=== PATIENT | male | born 1980 | race Caucasian/White ===

== ENCOUNTER 2017-01-30 16:06 | Day surgery (SDC) | payer BC ==
[~2017-01-30 16:06] MED LIST: GLUCAGON,HUMAN RECOMB 1 MG INJ ONE; SUCCINYLCHOLINE CHLORIDE INJ 200 MG/10 ML VIAL ONE
[2017-01-30] MEDS ORDERED: ALBUTEROL SULFATE 0.083% NEB 2.5 MG/3 ML AMPUL NEB ONE (17:05)
[2017-01-30] MEDS ORDERED: PROPOFOL INJ 200 MG/20 ML VIAL IV ONE (18:17)
[2017-01-30] MEDS ORDERED: FENTANYL CITRATE INJ/PF 100 MCG/2 ML AMPUL ONE ×2 (18:17)
[2017-01-30] MEDS ORDERED: MIDAZOLAM 2 MG/2 ML INJ ONE (18:17)
[2017-01-30] MEDS ORDERED: HYDROMORPHONE HCL INJ/PF 2 MG/ML AMPULE ONE (19:04)
[2017-01-30] MEDS ORDERED: DIPHENHYDRAMINE HCL 50 MG/ML VIAL IV PRN (19:13)
[2017-01-30] MEDS ORDERED: OXYCODONE-ACETAMINOPHEN 5-325 MG TABLET PO PRN ×2 (19:13)
[2017-01-30] MEDS ORDERED: MORPHINE SULFATE 10 MG/ML INJ IV PRN (19:13)
[2017-01-30] MEDS ORDERED: MEPERIDINE HCL/PF INJ 25 MG/1 ML DISP.SYRIN IV PRN (19:13)
[2017-01-30] MEDS ORDERED: FENTANYL CITRATE INJ/PF 100 MCG/2 ML AMPUL IV PRN ×3 (19:13)
[2017-01-30] MEDS ORDERED: PROMETHAZINE HCL INJ 25 MG/1 ML VIAL IV PRN ×2 (19:13)
--- NOTE | 2017-01-30 19:23 | Operative Report ---
Operative Report DATE OF SURGERY: 01/30/17 Operative Report: Pre-op diagnosis: Abnormal MRCP Post-op diagnosis: Multiple Common bile duct stones with dilated CBD Surgery: ERCP with sphincterotomy and balloon stone extraction Medications: As per anesthesia Tissue removed: Procedure: After informed consent obtained from patient, the throat was sprayed with Hurricane and conscious sedation was achieved. The ERCP endoscope was then inserted into the esophagus blindly and advanced into the stomach. The duodenum was entered and the ampulla was identified. Using the triple-lumen sphincterotomy catheter the common bile duct was freely cannulated. A cholangiogram was obtained which showed possible filling defect in the distal common bile duct. The common bile duct appear dilated. A good sized sphincterotomy was then performed using the endocut mode. The catheter was removed over the guidewire before a 9-12 mm balloon catheter was inserted. The balloon was inflated to 12 mm in the proximal common bile duct and pulled down the duct. Two large stones were extracted. The duct was swept two more times. A balloon occlusion cholangiogram was normal. The pancreatic duct was intentionally not cannulated. Patient tolerated procedure well. Findings Common bile duct:Two 1cm stones and sludge Intrahepatic ducts: Normal Pancreatic duct: Not cannulated Plan: Colecystectomy on 01/31/17 OPERATION: .
--- NOTE | 2017-01-30 19:25 | PDOC DISCHARGE SUMMARY ---
Discharge Summary (SDC) - Discharge Final Diagnosis: CBD stones Date of Surgery: 01/30/17 Condition: Stable Treatment or Instructions: none Discharge Diet: Clear Liquids Discharge Activity: Activity As Tolerated Report the Following to Your Physician Immediately: Shortness of Breath, Nausea , Vomiting, Yellow Skin, Fever over 101 Degrees
[2017-01-30 21:51] VITALS: BP 126/76
--- NOTE | 2017-01-31 09:00 | RADIOLOGY REPORT (SQ) ---
EXAM DESCRIPTION: ENDO CATH BILI/PANCREATIC COMPLETED DATE/TIME: 01/30/2017 7:35 pm REASON FOR STUDY: ERCP W/STONE REMOVAL K80.20 CALCULUS OF GALLBLADDER W/O CHOLECYSTITIS W/O OBSTRUC R94.5 ABNORMAL RESULTS OF LIVER FUNCTION STUDIES R10.13 EPIGASTRIC PAIN COMPARISON: None. FLUOROSCOPY TIME: 2.2 minutes 5 images saved to PACS. TECHNIQUE: Intra-operative images acquired during surgical procedure to evaluate progress. NUMBER OF IMAGES: 5 LIMITATIONS: None. FINDINGS: Endoscope tip overlying 2nd portion of duodenum. There is opacification of the bile ducts . No evidence of fixed filling defect or extravasation. IMPRESSION: IMAGE(S) OBTAINED DURING PROCEDURE. COMMENT: Quality ID [id number]: Final reports for procedures using fluoroscopy that document radiation exp osure indices, or exposure time and number of fluorographic images (if radiation exposure indices are not available) Please consult full operative report of the attending physician for description of the procedure. TECHNICAL DOCUMENTATION: JOB ID: [id number] [employer]- All Rights Reserved
== END 2017-01-30 21:35 | disposition home or self-care (01) ==
LOC: OROUT 16:06 → 5 20:00 → OROUT 21:35
PROVIDERS: ATTEND Internal Medicine Gastroenterology
PROC: 0FC98ZZ Extirpation of Matter from Common Bile Duct, Via Natural or Artificial Opening Endoscopic (ICD-10-PCS; principal; 2017-01-30 18:00)
PROC: 0F798ZZ Dilation of Common Bile Duct, Via Natural or Artificial Opening Endoscopic (ICD-10-PCS; 2017-01-30 18:00)
DX: K80.50 Calculus of bile duct without cholangitis or cholecystitis without obstruction (principal); K83.8 Other specified diseases of biliary tract
CPT/HCPCS: 43264; 43262; 74330; 94640; J2250; J3010; J1170; J0330; J2704; 740; J1610